=== PATIENT | female | born 1980 | race Native Hawaiian/Other Pacific Islander ===

== ENCOUNTER 2017-04-10 19:18 | Emergency (ER) | payer OTHER ==
[~2017-04-10] VITALS: Ht 152.4 cm; Wt 54.5 kg
[2017-04-10 19:18] VITALS: BP 152/87
[2017-04-10] MEDS ORDERED: PROZ20CA11 PO (19:35)
[2017-04-10] MEDS ORDERED: CYCL10TA PO (21:30)
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
== END 2017-04-10 22:00 | disposition home or self-care (01) ==
LOC: M ED 19:18
DX: M54.2 Cervicalgia (principal); F41.9 Anxiety disorder, unspecified; Z79.899 Other long term (current) drug therapy; Z87.891 Personal history of nicotine dependence

== ENCOUNTER 2018-11-17 11:08 | Emergency (ER) | payer OTHER ==
[~2018-11-17] VITALS: Ht 152.4 cm; Wt 59.2 kg
[~2018-11-17 11:08] MED LIST: CYCL10TA PO; PROZ20CA11 PO
[2018-11-17 11:52] LABS: BASO % 0.7 % (0.0-1.0); EOS # 0.1 10^3/uL (0.0-0.50); EOS % 1.7 % (0.0-3.0); HEMATOCRIT 25.2 % (36.0-47.0); HEMOGLOBIN 8.2 g/dl (12.0-15.5); LYMPH # 1.9 10^3/uL (1.5-4.5); LYMPH % 31.6 % (24.0-44.0); MEAN CORPUSCULAR HEMOGLOBIN 30.1 pg (27.0-33.0); MEAN CORPUSCULAR HGB CONC 32.5 g/dl (32.0-36.5); MEAN CORPUSCULAR VOLUME 92.6 fl (80.0-96.0); MONO # 0.4 10^3/uL (0.0-0.8); NEUTROPHILS # 3.5 10^3/uL (1.8-7.7); NEUTROPHILS % 58.8 % (36.0-66.0); PLATELET COUNT, AUTOMATED 337 10^3/uL (150-450); RED BLOOD COUNT 2.72 10^6/uL (4.00-5.40); WHITE BLOOD COUNT 5.9 10^3/uL (4.0-10.0)
[2018-11-17 12:12] LABS: BLOOD UREA NITROGEN 10 MG/DL (7-18); CALCIUM LEVEL 8.9 MG/DL (8.5-10.1); CARBON DIOXIDE LEVEL 29 MEQ/L (21-32); CHLORIDE LEVEL 106 MEQ/L (98-107); CREATININE FOR GFR 0.87 MG/DL (0.55-1.30); GLOMERULAR FILTRATION RATE > 60.0 (>60); GLUCOSE, FASTING 83 MG/DL (70-100); POTASSIUM SERUM 4.1 MEQ/L (3.5-5.1); SODIUM LEVEL 139 MEQ/L (136-145)
[2018-11-17] MEDS ORDERED: FERR325T16 PO (12:37)
[2018-11-17] MEDS ORDERED: ORTH1TAB10 PO (12:37)
[2018-11-17] MEDS ORDERED: FERR325T3 PO (12:38)
[2018-11-17 12:56] VITALS: BP 118/64
[2018-11-17] MEDS ORDERED: COLA100C5 PO (14:37)
[2018-11-17] MEDS ORDERED: ZOVI1TAB8 PO (14:37)
== END 2018-11-17 13:02 | disposition home or self-care (01) ==
LOC: M ED 11:08
DX: N93.8 Other specified abnormal uterine and vaginal bleeding (principal); D64.9 Anemia, unspecified